=== PATIENT | female | born 1990 | race Caucasian/White ===

== ENCOUNTER 2024-11-07 09:38 | Emergency (ER) | payer SELFPAY ==
[2024-11-07 09:48] VITALS: BP 127/88
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
== END 2024-11-07 11:32 | disposition home or self-care (01) ==
LOC: EMR 09:38
PROVIDERS: EMERGENCY PHYSICIAN Emergency Medicine
DX: S63.502A Unspecified sprain of left wrist, initial encounter (principal); V89.2XXA Person injured in unspecified motor-vehicle accident, traffic, initial encounter; Y92.410 Unspecified street and highway as the place of occurrence of the external cause
CPT/HCPCS: 99283; 73110